=== PATIENT | female | born 1985 | race Caucasian/White ===

== ENCOUNTER 2018-04-18 16:30 | Outpatient (CLI) | payer BC, OTHER ==
[2018-04-18 17:21] LABS: Appearance,Urine Clear (Clear); Bacteria,Urine Rare /hpf; Bilirubin,Urine Negative (Negative); Blood,Urine Negative (Negative); Color,Urine Yellow; Glucose,Urine (UA) Negative (Negative); Ketones,Urine 1+ (Negative); Leukocyte Esterase,Urine Large (Negative); Nitrite,Urine Negative (Negative); Protein,Urine Trace (Negative); RBC,Urine 2 /hpf (0-5); Specific Gravity,Urine 1.006 (1.001-1.035); Squamous Epithelial Cell,Urine 11 /hpf (0-4); Urobilinogen,Urine <2.0 mg/dL (<2.0); WBC,Urine 5 /hpf (0-5)
[2018-04-18 17:33] LABS: Basophils % (A) 0 %; Eosinophils % (A) 0 %; HCT 28.7 % (34.0-46.0); HGB 9.4 gm/dL (11.4-16.0); Lymphocytes # (A) 1.1 k/uL (1.0-4.8); Lymphocytes % (A) 16 %; MCH 27.2 pg (25.0-35.0); MCHC 32.9 g/dL (31.0-37.0); MCV 82.6 fL (80.0-100.0); Mean Platelet Volume 7.3; Monocytes # (A) 0.4 k/uL (0-1.0); Monocytes % (A) 6 %; Neutrophils # (A) 5.4 k/uL (1.3-7.7); Neutrophils % (A) 76 %; Platelet Count 264 k/uL (150-450); RBC 3.47 m/uL (3.80-5.40); RDW 14.7 % (11.5-15.5); WBC 7.1 k/uL (3.8-10.6)
[2018-04-18 17:50] LABS: AST 47 U/L (14-36); Blood Urea Nitrogen 6 mg/dL (7-17); LDH 405 U/L (313-618); Uric Acid 7.1 mg/dL (3.7-7.4)
[2018-04-18 18:59] VITALS: RESP 16; TEMP 97.8
[2018-04-18 19:09] VITALS: BP 117/70; PULSE 70
--- NOTE | 2018-04-24 22:01 | P.MSEPDOC ---
Presenting Problems - Arrival Data Date of Arrival on Unit: 04/18/18 Time of Arrival on Unit: 16:29 Mode of Transport: Ambulatory - Complaint OB-Reason for Admission/Chief Complaint: Other Comment: contractions Medical History - Information : 2 Para: 1 Term: 1 : 0 Abortions: Spontaneous or Elective: 0 Number of Living Children: 1 - Gestational Age Gestational Age by ALBERTO (wks/days): 35 Weeks and 6 Days Review of Systems - Review of Systems Constitutional: No problems Breast: No problems ENT: No problems Cardiovascular: No problems Respiratory: No problems Gastrointestinal: No problems Genitourinary: No problems Musculoskeletal: No problems Neurological: No problems Skin: No problems Vital Signs - Temperature Temperature: 97.8 F Temperature Source: Oral - Pulse Right Brachial Pulse Rate: 70 Pulse Assessment Method: Automatic Cuff - Respirations Respiratory Rate: 16 Oxygen Delivery Method: Room Air - Blood Pressure Right Arm Blood Pressure: 117/70 Blood Pressure Mean: 85 Blood Pressure Source: Automatic Cuff Medical Screen Scoring (Pre) - Cervical Exam Dilation: 1-3 cm = 1 - Uterine Contractions Frequency: < 36 weeks = 6 Duration: > 40 seconds = 2 Intensity: N/A - Maternal Vital Signs Maternal Temperature: N/A Maternal Blood Pressure: Diastolic > 89 = 1 Signs of Preeclampsia: N/A Maternal Respirations: N/A - Pain Assessment Pain Location and Character: Abdomen Pain Scale Used: Numeric (1 - 10) Pain Intensity: 2 Pain Description: *Acute Pain Frequency: Intermittent Pain Duration Units: Days Pain Behavior: None Exhibited Pain Aggravating Factors: Sitting - Assessment Baseline FHR: 145 Heart Rate - NICHD Category: Category I (Normal) = 0 NST: Reactive Position: N/A Station: N/A - Total Score Total Score (Pre): 10 - Level of Risk Level of Risk: High (10+) Medical Screen Scoring (Post) - Cervical Exam Dilation: 1-3 cm = 1 Membranes: Intact - Uterine Contractions Frequency: > or = 36 weeks =2 Duration: > 40 seconds = 2 - Maternal Vital Signs Maternal Temperature: N/A Maternal Blood Pressure: N/A Signs of Preeclampsia: N/A Maternal Respirations: N/A - Pain Assessment Pain Scale Used: Numeric (1 - 10) Pain Intensity: 2 - Maternal Trauma Maternal Trauma: N/A - Assessment Heart Rate: 145 Heart Rate - NICHD Category: Category I (Normal) = 0 NST: Reactive Position: N/A Station: N/A - Total Score Total Score (Post): 5 - Post Treatment Level of Risk Post Treatment Level of Risk: Low (0-5) Physician Notification (Post) - Physician Notified Physician Notified Date: 04/18/18 Physician Notified Time: 18:13 Physician/Practitioner Notified:: judson Spoke With: rachel New Order Received: Yes - Notification Comment Comment: pre-mse score 10, post score 5, pt labs reviewed, orders for 24 home urine collection, educate on collection, storage and returning. educate kick counts, follow with niver on sunday for repeat BP check and repeat labs, educate on pre-eclampsia and reasons for return visit. Disposition - Disposition OB Disposition: Discharge to home Discharge Date: 04/18/18 Discharge Time: 18:31 I agree with the RN Medical Screening Exam: Yes Risk & Benefit of care provided described in d/c instruction: Yes Diagnosis: FALSE LABOR BEFORE 37 COMPLETED WEEKS OF GEST, SECOND TRI
== END 2018-04-18 18:31 | disposition home or self-care (01) ==
LOC: FBPOP 16:30
PROVIDERS: ATTEND Obstetrics & Gynecology
DX: O47.03 False labor before 37 completed weeks of gestation, third trimester (principal); Z3A.35 35 weeks gestation of pregnancy
CPT/HCPCS: 59025; 81001; 82565; 83615; 84450; 84520; 84550; 85025; 99215

== ENCOUNTER → 2018-04-22 | Outpatient (CLI) | payer OTHER ==
[2018-04-22 13:56] VITALS: BP 134/98; PULSE 91; RESP 18; TEMP 98.7
--- NOTE | 2018-05-21 12:23 | P.MSEPDOC ---
Presenting Problems - Arrival Data Date of Arrival on Unit: 04/22/18 Time of Arrival on Unit: 11:39 Mode of Transport: Ambulatory - Complaint OB-Reason for Admission/Chief Complaint: PIH Comment: for fhr monitoring for variable decel to 60 bpm x 20 seconds in office. wilmer wnl per u/s at office today. pt had PIH workup on 04/19. to continue to observe from home with pt checkig b/p's and to folow up if pih s/sx (reviewed) increase. or if kick coounts diminish on baby. Medical History - Information : 2 Para: 1 Term: 1 : 0 Abortions: Spontaneous or Elective: 0 Number of Living Children: 1 - Gestational Age Gestational Age by ALBERTO (wks/days): 36 Weeks and 3 Days - History Comment: PIH follow up Review of Systems - Review of Systems Constitutional: No problems Breast: No problems ENT: No problems Cardiovascular: No problems Respiratory: No problems Gastrointestinal: No problems Genitourinary: No problems Musculoskeletal: No problems Neurological: No problems Skin: No problems Vital Signs - Temperature Temperature: 98.7 F Temperature Source: Oral - Pulse Right Brachial Pulse Rate: 91 Pulse Assessment Method: Automatic Cuff - Respirations Respiratory Rate: 18 Oxygen Delivery Method: Room Air O2 Sat by Pulse Oximetry: 97 - Blood Pressure Right Arm Blood Pressure: 134/98 Blood Pressure Mean: 110 Blood Pressure Source: Automatic Cuff Medical Screen Scoring (Pre) - Cervical Exam Dilation: Exam Deferred Effacement: Exam Deferred Membranes: Intact - Uterine Contractions Duration: N/A Intensity: N/A - Maternal Vital Signs Maternal Temperature: N/A Maternal Blood Pressure: Diastolic > 89 = 1 Signs of Preeclampsia: N/A Maternal Respirations: N/A - Pain Assessment Pain Scale Used: Numeric (1 - 10) Pain Intensity: 0 - Maternal Trauma Maternal Trauma: N/A - Assessment Baseline FHR: 130 Heart Rate - NICHD Category: Category I (Normal) = 0 NST: Reactive Position: N/A Station: N/A - Total Score Total Score (Pre): 1 - Level of Risk Level of Risk: Low (0-5) Physician Notification (Pre) - Physician Notified Physician Notified Date: 04/22/18 Physician Notified Time: 13:25 Spoke With: bri New Order Received: Yes - Notification Comment Comment: discharge home. to keep thurs appt in office, take b/p's at home as ordered. kick counts daily. call if s/sx of pih worsen or if kick counts diminish. I agree with the RN Medical Screening Exam: Yes Risk & Benefit of care provided described in d/c instruction: Yes Diagnosis: RELATED CONDITIONS, UNSPECIFIED, THIRD TRIMESTER
== END | disposition home or self-care (01) ==
LOC: FBPOP 12:34
PROVIDERS: ATTEND Obstetrics & Gynecology
DX: O26.93 Pregnancy related conditions, unspecified, third trimester (principal); Z3A.36 36 weeks gestation of pregnancy
CPT/HCPCS: 59025; 99213

== ENCOUNTER → 2018-05-03 | Outpatient (CLI) | payer OTHER ==
[2018-05-03 15:47] LABS: Collection Time,Urine 24 hrs; Total Volume 24 Hour,Urine 2025 mls (800-1800)
[2018-05-03 16:00] LABS: HCT 28.7 % (34.0-46.0); HGB 9.5 gm/dL (11.4-16.0); MCH 26.9 pg (25.0-35.0); MCV 81.6 fL (80.0-100.0); Mean Platelet Volume 7.6; Platelet Count 260 k/uL (150-450); RBC 3.52 m/uL (3.80-5.40); RDW 14.8 % (11.5-15.5); WBC 6.2 k/uL (3.8-10.6)
[2018-05-03 16:10] LABS: Uric Acid 7.2 mg/dL (3.7-7.4)
[2018-05-03 16:13] LABS: Total Protein 24 Hour,Urine 729 mg/24hr (42.0-225.0)
[2018-05-03 16:15] LABS: Creatinine 24 Hour,Urine 1059.1 mg/24hr (800.0-1800.0)
== END | disposition home or self-care (01) ==
LOC: LABWHC1 15:23
PROVIDERS: ATTEND Obstetrics & Gynecology
DX: O13.9 Gestational [pregnancy-induced] hypertension without significant proteinuria, unspecified trimester (principal); Z3A.00 Weeks of gestation of pregnancy not specified
CPT/HCPCS: 36415; 81050; 82575; 84156; 84450; 84460; 84550; 85027

== ENCOUNTER 2018-05-04 20:10 | Inpatient (IN) | payer OTHER ==
[2018-05-04] MEDS ORDERED: MAGNESIUM SULFATE-WATER PMX 4 GM in WATER FOR INJECTION 1 50ML.BAG IVPB ONE (20:29)
[2018-05-04] MEDS ORDERED: LABETALOL 5 MG/ML VIAL MDV IVP PRN ×3 (20:29)
[2018-05-04] MEDS ORDERED: CALCIUM CHLORIDE 500 MG in SODIUM CHLORIDE 0.9% 50 ML IVPB ONE (20:29)
[2018-05-04] MEDS ORDERED: hydrALAZINE HCL 20 MG/ML 1 ML VIAL IVP PRN (20:29)
[2018-05-04] MEDS ORDERED: DINOPROSTONE 10 MG INSERT.ER VAGINAL ONE (20:33)
[2018-05-04] MEDS ORDERED: METHYLERGONOVINE 0.2 MG/ML 1 ML AMP IM PRN (20:34)
[2018-05-04] MEDS ORDERED: CARBOPROST TROMETHAMINE 250 MCG/ML 1 ML AMP IM PRN (20:34)
[2018-05-04] MEDS ORDERED: OXYTOCIN 10 UNIT/ML 1 ML VIAL IM PRN (20:34)
[2018-05-04] MEDS ORDERED: LIDOCAINE 1% (PF) 10 MG/ML (30 ML SDV) SQ PRN (20:34)
[2018-05-04] MEDS ORDERED: TERBUTALINE 1 MG/ML VIAL SQ PRN (20:34)
[2018-05-04 20:39] VITALS: BMI 34.9
--- NOTE | 2018-05-04 20:54 | P.HPOB ---
History of Present Illness H&P Date: 05/04/18 Chief Complaint: Severe headaches This is a 32-year-old 2 para 1001 woman with an estimated due date of based on LMP who presents at 38 weeks gestation with worsening severe headache throughout the day today. Home blood pressures have been in the 150s over 100s. She is known preeclamptic with elevated urine protein greater than 500 mg per 24 hours, elevated AST and blood pressures at 37 weeks. She was therefore followed closely in the office setting and had repeat laboratory data done yesterday. Review of this reveals increasing proteinuria to 729 mg per 24 hours and a significant increase in her AST and ALT. She reports today at home she developed a headache this morning that progressively worsened throughout the day. She denies visual changes. She is having some nausea. She denies abdominal pain, shortness of breath or chest pain. She has mild swelling of the lower extremities over the last 1 week. She reports good movement and denies regular contractions. Obstetric history is significant for a previous term vaginal delivery in 2013 that was uncomplicated. Laboratory data shows blood type A+, antibody screen negative, rubella immune, VDRL nonreactive, hepatitis B surface antigen negative , HIV negative, group B strep positive Preeclamptic labs dated 05/03/2018 show hemoglobin 9.5, hematocrit 28.7, platelets 260, AST 77 (previous 47 on 04/18/18), ALT 113, 24 hour urine proteins 729 mg per 24 hours. Blood pressures upon initial presentation on labor and delivery triage are in the 180s over 110s. Review of Systems All systems: negative Past Medical History Past Medical History: No Reported History History of Any Multi-Drug Resistant Organisms: None Reported Past Surgical History: No Surgical Hx Reported Smoking Status: Never smoker Medications and Allergies Home Medications Medication Instructions Recorded Confirmed Type Loz-Rifx-Zmrov Acid 1 each PO DAILY 09/13/14 09/13/14 History [-U Capsule] L.acidoph,Paracasei, B.lactis 1 tab PO ONCE 05/04/18 05/04/18 History [Probiotic] Allergies Allergy/AdvReac Type Severity Reaction Status Date / Time No Known Allergies Allergy Verified 05/04/18 20:33 Exam Intake and Output 05/04/18 05/04/18 05/04/18 06:59 14:59 22:59 Other: Weight 101.151 kg This is a pleasant, visibly gravid female in no obvious distress. HEENT exam is unremarkable. The lungs are clear to auscultation bilaterally and the heart is of regular rate and rhythm. The abdomen is gravid, soft and nontender with no right upper quadrant pain and no flank pain. Lower extremities have 1+ bilateral edema and 3+ deep tendon reflexes with no clonus. On pelvic examination the cervix is 2 cm dilated 30% effaced and the vertex is in the -3 station. Assessment and Plan (1) 38 weeks gestation of Current Visit: Yes Status: Acute Code(s): Z3A.38 - 38 WEEKS GESTATION OF SNOMED Code(s): 89485477 (2) Severe preeclampsia Current Visit: Yes Status: Acute Code(s): O14.10 - SEVERE PRE-ECLAMPSIA, UNSPECIFIED TRIMESTER SNOMED Code(s): 32224613 (3) Group B Streptococcus carrier, antepartum Current Visit: No Status: Acute Code(s): O99.820 - STREPTOCOCCUS B CARRIER STATE COMPLICATING SNOMED Code(s): 0972841741718 Plan: This is a 32-year-old 2 para 1001 woman with severe preeclampsia based on hypertension, proteinuria, elevated liver functions and symptoms of severe headache. She is therefore admitted to labor and delivery. Her cervix is unfavorable and Cervidil cervical ripening has been ordered. Labetalol antihypertensive protocol is initiated. Magnesium sulfate seizure prophylaxis will be started. When she is in active labor she will require group B strep prophylactic antibiotics. This has been explained in detail to the patient and her and they are in agreement with the plan. status is currently reassuring by external monitoring.
[2018-05-04] MEDS: LACTATED RINGERS 1,000 ML IV SCH (21:03)
[2018-05-04 21:21] LABS: Basophils % (A) 0 %; Eosinophils % (A) 0 %; HCT 29.4 % (34.0-46.0); HGB 9.5 gm/dL (11.4-16.0); Lymphocytes # (A) 1.6 k/uL (1.0-4.8); Lymphocytes % (A) 22 %; MCHC 32.2 g/dL (31.0-37.0); MCV 80.7 fL (80.0-100.0); Mean Platelet Volume 7.8; Monocytes # (A) 0.4 k/uL (0-1.0); Monocytes % (A) 5 %; Neutrophils # (A) 4.9 k/uL (1.3-7.7); Neutrophils % (A) 70 %; Platelet Count 257 k/uL (150-450); RBC 3.65 m/uL (3.80-5.40); RDW 14.8 % (11.5-15.5)
[2018-05-04 21:35] LABS: ALT 111 U/L (9-52); AST 75 U/L (14-36); Blood Urea Nitrogen 7 mg/dL (7-17); LDH 446 U/L (313-618); Magnesium 1.2 mg/dL (1.6-2.3); Uric Acid 7.2 mg/dL (3.7-7.4)
[2018-05-04 21:37] LABS: Amorphous Sediment,Urine Rare /hpf; Appearance,Urine Cloudy (Clear); Bacteria,Urine Rare /hpf; Bilirubin,Urine Negative (Negative); Blood,Urine Negative (Negative); Color,Urine Yellow; Glucose,Urine (UA) Negative (Negative); Ketones,Urine 1+ (Negative); Leukocyte Esterase,Urine Large (Negative); Mucus,Urine Rare /hpf; Nitrite,Urine Negative (Negative); PH, Urine 7.5 (5.0-8.0); Protein,Urine Trace (Negative); Specific Gravity,Urine 1.008 (1.001-1.035); Squamous Epithelial Cell,Urine 3 /hpf (0-4); Urobilinogen,Urine <2.0 mg/dL (<2.0); WBC,Urine 12 /hpf (0-5)
[2018-05-04] MEDS: MAGNESIUM SULFATE-WATER PMX 20 GM in WATER FOR INJECTION 1 500ML.BAG IV SCH (21:51)
[2018-05-04] MEDS ORDERED: ONDANSETRON 4 MG/2 ML VIAL IVP PRN (22:26)
[2018-05-04 22:40] LABS: INR 0.9 (<1.2); Prothrombin Time 9.3 sec (9.0-12.0)
[2018-05-04 22:41] LABS: Partial Thromboplastin Time 19.4 sec (22.0-30.0)
[2018-05-04] MEDS: PENICILLIN G POTASSIUM 5,000,000 UNIT in DEXTROSE 5% IN WATER 100 ML IVPB STA ×2 (23:15)
[2018-05-04] MEDS: BUTORPHANOL 1 MG/ML 1 ML VIAL IV PRN (23:19)
[2018-05-05] MEDS: BUTORPHANOL 1 MG/ML 1 ML VIAL IV PRN ×2 (02:00→06:42)
[2018-05-05] MEDS: PENICILLIN G POTASSIUM 2,500,000 UNIT in DEXTROSE 5% IN WATER 100 ML IVPB SCH ×6 (03:44→12:25)
[2018-05-05] MEDS ORDERED: OXYTOCIN 20 UNITS/1000 ML NS 1,000 ML IV SCH ×2 (06:00→10:15)
[2018-05-05] MEDS: LACTATED RINGERS 1,000 ML IV SCH ×3 (06:24→23:35)
[2018-05-05] MEDS ORDERED: CITRIC ACID-SODIUM CITRATE 15 ML CUP PO ONE (06:33)
[2018-05-05] MEDS: MAGNESIUM SULFATE-WATER PMX 20 GM in WATER FOR INJECTION 1 500ML.BAG IV SCH ×2 (08:18→18:27)
--- NOTE | 2018-05-05 09:17 | P.PN ---
Progress Note - Text Progress Note Date: 05/05/18 Patient is feeling okay on magnesium sulfate. Her headache is now only mild. She denies visual changes, shortness of breath, chest pain, nausea, vomiting. She does have some heartburn which was treated with Bicitra. Her blood pressures have been steadily in the 140s over 80s on magnesium throughout the night. Her Cervidil was removed at approximately 6 AM at which time she was 3 cm dilated per the nursing staff. Pitocin was initiated. She is now 5+ centimeters dilated 90% effaced and the vertex in the -1 station. Artificial rupture of membranes is undertaken and clear fluid was noted. status is overall reassuring although she she does have some decrease in variability at this time likely secondary to Stadol and magnesium. There is good accelerations with scalp stimulation. She is requesting an epidural anesthetic which will be ordered at this time.
[2018-05-05] MEDS ORDERED: ROPIVACAINE 100 MG, fentaNYL (PF) 200 MCG in SODIUM CHLORIDE 0.9% 76 ML EPIDURAL ONE (09:34)
--- NOTE | 2018-05-05 10:05 | P.PROBDLV ---
Vaginal Delivery Note - . Vaginal Delivery Note: Findings: Female in the vertex right occiput anterior position with Apgars of 9 at 1 minute and 9 at 5 minutes weighing 7 lbs. 5 oz., 3310 g. Intact, three-vessel cord placenta. Shallow second-degree perineal laceration. EBL 150 mL's. Delivery summary: This is a 32-year-old 2 para 1 woman who was admitted at 38-2/7 weeks' gestation with severe preeclampsia. She was started on magnesium sulfate for elevated blood pressures, severe headache, abnormal LFTs and 24-hour urine protein. She received Cervidil cervical ripening throughout the night and at approximate 6 AM Cervidil was removed at which time she was 3 cm. Pitocin induction of labor was initiated and she received Stadol for pain control. She reached 5 cm dilated and artificial rupture of membranes was undertaken at 8:30 AM. Clear fluid was noted. scalp electrode was placed. She received an epidural anesthetic. Following placement of the epidural she did have some hypotension which resulted in some deep variable heart rate decelerations. Her blood pressure was addressed and at 9:30 AM she was still 5+ centimeters dilated. However the very acutely she had significant urge to push and was found to be rapidly completely dilated. The 's head was at approximately 938. She was repositioned, prepped and draped in the dorsal modified lithotomy position. There was bradycardia however with excellent maternal effort the head the head delivered from the right occiput anterior position. The anterior followed by the pusher shoulders were then delivered rapidly onto the field. The nose and mouth were bulb suctioned and the was placed on the maternal abdomen. The cord was clamped and cut. Apgars were 9 at 1 minute and 9 at 5 minutes and weight was 7 lbs. 5 oz. An intact, three-vessel cord placenta with some calcifications was was expressed. A second-degree perineal laceration was noted and infused with lidocaine. It was repaired with 3-0 Vicryl suture in the usual fashion. The rest of the vagina and cervix were inspected and no further lacerations were noted. Postdelivery blood pressure was 153/65. She was continued on magnesium 2 g/h and she received Pitocin following delivery of the placenta. Both mother and were doing well post delivery in the room. Counts were correct.
[2018-05-05] MEDS ORDERED: diphenhydrAMINE 50 MG CAP PO PRN (10:07)
[2018-05-05] MEDS ORDERED: diphenhydrAMINE 25 MG CAP PO PRN (10:07)
[2018-05-05] MEDS ORDERED: HYDROCORTISONE 2.5% RECTAL CREAM 30 GM TUBE RECTAL PRN (10:07)
[2018-05-05] MEDS ORDERED: BENZOCAINE/MENTHOL SPRAY 1 GM/SPRAY AEROSOL TOPICAL PRN (10:07)
[2018-05-05] MEDS ORDERED: SIMETHICONE 80 MG CHEWABLE PO PRN (10:07)
[2018-05-05] MEDS ORDERED: ACETAMINOPHEN TAB 325 MG TAB PO PRN (10:07)
[2018-05-05] MEDS ORDERED: diphenhydrAMINE 50 MG/ML 1 ML VIAL IVP PRN ×2 (10:07)
[2018-05-05] MEDS ORDERED: LANOLIN CREAM 5 GM TUBE TOPICAL PRN (10:07)
[2018-05-05] MEDS ORDERED: WITCH HAZEL 1 EACH MED..PAD TOPICAL PRN (10:07)
[2018-05-05] MEDS ORDERED: ZOLPIDEM 5 MG TAB PO PRN (10:07)
[2018-05-05] MEDS: PENICILLIN G POTASSIUM 5,000,000 UNIT in DEXTROSE 5% IN WATER 100 ML IVPB STA ×2 (12:23)
[2018-05-05] MEDS: IBUPROFEN 600 MG TAB PO PRN (14:37)
[2018-05-05] MEDS: SENNOSIDES-DOCUSATE SODIUM 1 EACH TAB PO SCH ×2 (20:34→21:44)
[2018-05-06] MEDS: IBUPROFEN 600 MG TAB PO PRN (08:11)
[2018-05-06] MEDS: SENNOSIDES-DOCUSATE SODIUM 1 EACH TAB PO SCH (08:11)
--- NOTE | 2018-05-06 08:11 | P.PN ---
Subjective Progress Note Date: 05/06/18 . Minimal headache this morning. No right upper quadrant pain. Objective - Vital Signs Vital signs: Vital Signs Temp 98.0 F 05/06/18 04:00 Pulse 85 05/06/18 04:00 Resp 16 05/06/18 04:00 BP 138/84 05/06/18 04:00 Pulse Ox 98 05/05/18 15:35 Intake & Output 05/05/18 05/06/18 05/06/18 18:59 06:59 18:59 Intake Total 2100 1000 Output Total 2200 1900 Balance -100 -900 Intake: Intake, IV Titration 2100 1000 Amount Lactated Ringers 1,000 ml 1000 @ 125 mls/hr IV .Q8H RIRI Rx#:[id number] Magnesium Sulfate-Water 1000 Pmx 20 gm In Water For Injection 1 500ml.bag @ 2 GM/HR 50 mls/hr IV .Q10H IRRI Rx#:[id number] Oxytocin 20 Units/1000 ml 1000 Ns 1,000 ml @ Per Protocol IV .Q0M RIRI Rx#: [id number] Penicillin G Potassium 2, 100 500,000 unit In Dextrose 5% in Water 100 ml @ 100 mls/hr IVPB Q4H RIRI Rx#: [id number] Output: Urine 2200 1900 Other: # Voids 1 0 - Constitutional General appearance: Present: average body habitus, cooperative - EENT Eyes: Present: PERRLA ENT: Present: hearing grossly normal - Neck Thyroid: bilateral: normal size - Respiratory Respiratory: bilateral: CTA - Cardiovascular Rhythm: regular - Gastrointestinal General gastrointestinal: Present: normal bowel sounds - Integumentary Integumentary: Present: normal - Neurologic Neurologic: Present: CNII-XII intact - Musculoskeletal Musculoskeletal: Present: gait normal, strength equal bilaterally - Psychiatric Psychiatric: Present: A&O x's 3, appropriate affect, intact judgment & insight - Labs CBC & Chem 7: 05/04/18 21:00 05/04/18 21:00 Assessment and Plan Assessment: Status post vaginal delivery for severe preeclampsia, magnesium sulfate discontinued. Plan: Continue blood pressure monitoring today. Advance diet and activity. Likely discharge home tomorrow. Time with Patient: Less than 30
[2018-05-06 08:12] LABS: Basophils % (A) 0 %; Eosinophils % (A) 0 %; HCT 25.6 % (34.0-46.0); HGB 8.3 gm/dL (11.4-16.0); Lymphocytes # (A) 1.5 k/uL (1.0-4.8); Lymphocytes % (A) 16 %; MCH 26.6 pg (25.0-35.0); MCHC 32.6 g/dL (31.0-37.0); MCV 81.7 fL (80.0-100.0); Mean Platelet Volume 7.8; Monocytes # (A) 0.5 k/uL (0-1.0); Monocytes % (A) 5 %; Neutrophils # (A) 7.3 k/uL (1.3-7.7); Neutrophils % (A) 77 %; Platelet Count 255 k/uL (150-450); RBC 3.13 m/uL (3.80-5.40); RDW 14.9 % (11.5-15.5); WBC 9.5 k/uL (3.8-10.6)
[2018-05-06] MEDS: MAGNESIUM SULFATE-WATER PMX 20 GM in WATER FOR INJECTION 1 500ML.BAG IV SCH (09:12)
[2018-05-06] MEDS ORDERED: MEASLES-MUMPS-RUBELLA VACC/PF 12,500 UNIT/0.5 ML VIAL SQ ONE (13:24)
[2018-05-07] MEDS: SENNOSIDES-DOCUSATE SODIUM 1 EACH TAB PO SCH (01:20)
[2018-05-07 07:54] VITALS: BP 133/79; PULSE 69; RESP 14; TEMP 97.9
--- NOTE | 2018-05-07 12:10 | P.DS ---
Providers Date of admission: 05/04/18 20:10 Expected date of discharge: 05/07/18 Attending physician: Nakia Mccoy Primary care physician: Nakia Mccoy [facility] Course: 32 year old EDC 05/17/18 at 38 2/7 wks, presented with elevated BP and headache, admitted and induced for preeclampsia. Cytotec was used, oxytocin given, Mg SO4 also administered for 24 hours. Please see admitting H and P. GBS (+). Blood type A (+). Pt delivered vaginally a 7# 5oz female with apgars of 9 and 9 at 1 and 5 minutes respectivelt. A 2nd degree laceration was repaired. Please see dictated delivery note for details. BP have stabilized, headache resolved. Pt feels well and has an unremarkable post course. BP now 120-130/ 70 range. Reasnor is doing well and has been discharged. Pt feels well for discharge home. Pt will follow up with me in 6 weeks. She will continue to monitor her BP at home and call with elevation or with any recurrent symptomatology. She and her are contemplating vasectomy. No intercourse, continue PNVit daily. Call with any issues, is in very good condition at this time for discharge. Patient Condition at Discharge: Good Plan - Discharge Summary Discharge Rx Participant: No New Discharge Prescriptions: No Action Dji-Mmff-Okylj Acid [-U Capsule] 1 each PO DAILY L.acidoph,Paracasei, B.lactis [Probiotic] 1 tab PO ONCE Discharge Medication List Ojb-Zqdp-Jsnle Acid [-U Capsule] 1 each PO DAILY 09/13/14 [ History] L.acidoph,Paracasei, B.lactis [Probiotic] 1 tab PO ONCE 05/04/18 [History] Follow up Appointment(s)/Referral(s): Nakia Mccoy MD [Primary Care Provider] - 6 Weeks
== END 2018-05-07 14:21 | disposition home or self-care (01) | DRG 775 ==
LOC: 4FBP 20:10
PROVIDERS: ADMIT Obstetrics & Gynecology; ATTEND Obstetrics & Gynecology
PROC: 00HU33Z Insertion of Infusion Device into Spinal Canal, Percutaneous Approach (ICD-10-PCS; principal; 2018-05-05)
PROC: 10E0XZZ Delivery of Products of Conception, External Approach (ICD-10-PCS; principal; 2018-05-05)
PROC: 3E0P7VZ Introduction of Hormone into Female Reproductive, Via Natural or Artificial Opening (ICD-10-PCS; principal; 2018-05-05)
PROC: 10907ZC Drainage of Amniotic Fluid, Therapeutic from Products of Conception, Via Natural or Artificial Opening (ICD-10-PCS; principal; 2018-05-05)
PROC: 3E033VJ Introduction of Other Hormone into Peripheral Vein, Percutaneous Approach (ICD-10-PCS; principal; 2018-05-05)
PROC: 0KQM0ZZ Repair Perineum Muscle, Open Approach (ICD-10-PCS; principal; 2018-05-05)
PROC: 3E0R3NZ Introduction of Analgesics, Hypnotics, Sedatives into Spinal Canal, Percutaneous Approach (ICD-10-PCS; principal; 2018-05-05)
DX: O14.14 Severe pre-eclampsia complicating childbirth (principal); O70.1 Second degree perineal laceration during delivery; O76 Abnormality in fetal heart rate and rhythm complicating labor and delivery; O99.824 Streptococcus B carrier state complicating childbirth; Z37.0 Single live birth; Z3A.38 38 weeks gestation of pregnancy; Z79.899 Other long term (current) drug therapy
CPT/HCPCS: 36415; 81001; 81050; 82565; 82575; 83615; 83735; 84156; 84450; 84460; 84520; 84550; 85025; 85027; 85384; 85610; 85730; 88307; 90471; 90707

== ENCOUNTER → 2023-01-26 | Outpatient (CLI) | payer BC ==
--- NOTE | 2023-01-29 13:59 | MM ---
Reason for Exam: Screening (asymptomatic). Patient History: Menarche at age 17. First Full-Term at age 29. Premenopausal. Risk Values: [place] 5 year model risk: 0.3%. NCI Lifetime model risk: 10.4%. Tissue Density: The breast tissue is heterogeneously dense. This may lower the sensitivity of mammography. Findings: Analyzed By CAD. Pattern appears symmetrical No suspicious groups of microcalcifications, spiculated or lobular masses, architectural distortion or other secondary signs of malignancy are mammographically apparent. Overall Assessment: Benign, BI-RAD 2 Management: Screening Mammogram of both breasts in 1 year. A negative mammogram report should not preclude additional follow up of suspicious palpable abnormalities. Patient should continue monthly self breast exam. A clinical breast exam by your physician is recommended on an annual basis and results should be correlated with mammographic findings. Electronically signed and approved by: Teto Newman D.O. Radiologis
== END | disposition home or self-care (01) ==
LOC: RADMAMWWP 09:24
PROVIDERS: ATTEND Obstetrics & Gynecology
DX: Z12.31 Encounter for screening mammogram for malignant neoplasm of breast (principal)
CPT/HCPCS: 77063; 77067